=== PATIENT | male | born 1950 | race Caucasian/White ===

== ENCOUNTER → 2017-04-16 | Outpatient (CLI) | payer OTHER ==
[2017-04-16 18:43] LABS: CREATININE 1.1 mg/dl (0.60-1.40)
== END | disposition home or self-care (01) ==
LOC: C.LAB1850 17:03
PROVIDERS: ATTEND Urology
DX: C61 Malignant neoplasm of prostate (principal); R97.20 Elevated prostate specific antigen [PSA]

== ENCOUNTER → 2017-04-30 | Outpatient (CLI) | payer OTHER ==
[~2017-04-30] MED LIST: GADAVIST IV PRN
--- NOTE | 2017-05-01 07:46 | DIAGNOSTIC IMAGING REPORT ---
PROSTATE MRI WITH AND WITHOUT CONTRAST CLINICAL HISTORY: Elevated PSA. Negative biopsies. TECHNIQUE: Multisequence, multiplanar MR imaging of the prostate was performed before and after the intravenous ministration of 7.5 cc of Gadavist. Post contrast imaging was performed utilizing dynamic enhancement. Additional postprocessing was performed on a separate [employer] workstation by the radiologist for 3-D volumetric segmentation of the prostate and contouring of region(s) of interest (ADAM) for targeting. COMPARISON: None. FINDINGS: Prostate: The prostate measures 5.8 x 4.9 x 6.7 cm cm (Dyna[employer] prostate boundary segmentation volume 91.95 mL). Moderate changes of benign prostatic hyperplasia. Precontrast T1 weighted imaging demonstrates no evidence of intrinsic T1 hyperintensity to suggest hemorrhage. No suspicious lesions are identified within the peripheral zone. Marked BPH is noted. No suspicious findings are identified within the transitional zone. Seminal vesicles normal. Bladder: Normal. Bowel: Visualized portion of the rectum normal. Peritoneum: No free fluid in the pelvis. Lymph nodes: No lymphadenopathy in the visualized portion of the pelvis. Vasculature: Iliac vessels patent. Abdominal wall: Normal. Osseous structures: Normal bone marrow signal intensity. IMPRESSION: 1. No suspicious lesions within the prostate gland. Multiple circumscribed lesions within the transitional zone which suggest BPH nodules. This study is considered PI-RADS 2: low (clinically significant cancer is unlikely to be present). 2. Marked benign prostatic hyperplasia. Electronically signed by: Dave Sharma M.D. 05/01/2017 7:44 AM Dictated Date/Time: 04/30/2017 12:34 PM
== END | disposition home or self-care (01) ==
LOC: C.MRIBC 10:35
PROVIDERS: ATTEND Urology
DX: R97.20 Elevated prostate specific antigen [PSA] (principal)